=== PATIENT | female | born 1980 | race Hispanic/Latino ===

== ENCOUNTER → 2016-07-15 | Outpatient (CLI) | payer BC ==
[2016-07-15 17:49] LABS: HEMATOCRIT 41.4 % (37.0-47.0); HEMOGLOBIN 13.8 g/dL (12.0-16.0); MEAN CORPUSCULAR HEMOGLOBIN 27.2 PG (27-31); MEAN CORPUSCULAR HGB CONC 33.3 g/dL (33-37); RDW COEFFICIENT OF VARIATION 17.7 % (11.5-14.5); RED BLOOD COUNT 5.08 10^6/uL (4.20-5.40); WHITE BLOOD COUNT 6.09 10^3/uL (4.8-10.8)
== END ==
LOC: LAB 09:59
PROVIDERS: ATTEND Physician Assistant
DX: E03.9 Hypothyroidism, unspecified (principal); E55.9 Vitamin D deficiency, unspecified; D64.9 Anemia, unspecified
CPT/HCPCS: 82306; 84443; 85027

== ENCOUNTER 2016-07-17 17:21 | Emergency (ER) | payer BC ==
[2016-07-17] MEDS ORDERED: Sodium Chloride 0.9% 1,000 ML PRIMARY IV ONE (17:34)
[2016-07-17] MEDS ORDERED: ONDANSETRON 4 MG/2 ML VIAL IVP ONE (17:34)
[2016-07-17] MEDS ORDERED: NORMAL SALINE 10 ML SYRINGE FLUSH IVP PRN (17:34)
[2016-07-17] MEDS ORDERED: HYDROmorphone 2 MG/1 ML IVP ONE (17:36)
[2016-07-17] MEDS ORDERED: ONDANSETRON 4 MG/2 ML VIAL ONE (17:46)
[2016-07-17] MEDS ORDERED: HYDROmorphone 2 MG/1 ML ONE (17:46)
[2016-07-17 17:47] VITALS: RESP 20; TEMP 97.5
[2016-07-17] MEDS ORDERED: Sodium Chloride 0.9% 1,000 ML ONE (17:47)
[2016-07-17 17:48] LABS: BASOPHILS # (AUTO) 0.04 10*3/UL; BASOPHILS % (AUTO) 0.4 % (0-1); EOSINOPHILS % (AUTO) 3.6 % (0-8); HEMATOCRIT 39.7 % (37.0-47.0); HEMOGLOBIN 13.1 g/dL (12.0-16.0); IMM GRAN % (AUTO) 0.1 % (0-5); IMM GRAN# (AUTO) 0.01 10*3/UL; LYMPHOCYTES # (AUTO) 3.29 10*3/uL; LYMPHOCYTES % (AUTO) 34.7 % (10-50); MONOCYTES # (AUTO) 0.62 10*3/UL (0.3-0.8); MONOCYTES % (AUTO) 6.5 % (5-15); NEUTROPHILS # (AUTO) 5.18 10*3/UL; NEUTROPHILS % (AUTO) 54.7 % (50-80); RDW COEFFICIENT OF VARIATION 17.4 % (11.5-14.5); RED BLOOD COUNT 4.86 10^6/uL (4.20-5.40); WHITE BLOOD COUNT 9.48 10^3/uL (4.8-10.8)
[2016-07-17 17:58] LABS: AMYLASE 71 U/L (30-110); ASPARTATE AMINO TRANSFERASE 23 IU/L (8-39); BILIRUBIN,TOTAL 0.2 mg/dL (0.3-1.2); BLOOD UREA NITROGEN 18 mg/dL (7-22); CALCIUM 9.2 mg/dL (8.7-10.7); CHLORIDE 105 meq/L (98-112); CREATININE 0.8 mg/dL (0.50-1.20); EST GLOMERULAR FILTRATION > 60 (>60 ml/min/1.73m(2)); GLUCOSE 109 mg/dL (78-110); POTASSIUM 3.8 meq/L (3.8-5.2); SODIUM 139 meq/L (135-145); TOTAL PROTEIN 7.7 g/dL (6.1-8.0)
[2016-07-17 17:59] LABS: PLATELET MORPHOLOGY COMMENT NORMAL MORPHOLOGY (NORM)
[2016-07-17] MEDS ORDERED: KETOROLAC 30 MG/1 ML VIAL IVP ONE (19:02)
[2016-07-17] MEDS ORDERED: KETOROLAC 30 MG/1 ML VIAL ONE (19:10)
[2016-07-17 19:39] LABS: BILIRUBIN,URINE NEGATIVE (NEG); CLARITY,URINE CLEAR (CLEAR); GLUCOSE, URINE (UA) NEGATIVE (NEG); LEUKOCYTE ESTERASE ,URINE NEGATIVE (NEG); NITRATE,URINE NEGATIVE (NEG); OCCULT BLOOD,URINE NEGATIVE (NEG); PROTEIN,URINE NEGATIVE (NEG); URINE SAMPLE TYPE CLEAN CATCH URINE; UROBILINOGEN,URINE 0.2 EU/dL (0.2)
[2016-07-17] MEDS ORDERED: HYDROcodone-APAP 10 MG-325 MG TABLET PO SCH (20:15)
[2016-07-17] MEDS ORDERED: HYDROcodone-APAP 10 MG-325 MG TABLET PO ONE (20:20)
--- NOTE | 2016-07-18 04:16 | PDOC ---
Abdomen/Flank HPI - General Chief Complaint: Genitourinary Complaint Stated Complaint: flank pain Date Seen by Provider: 07/17/16 Time Seen by Provider: 17:20 Source: POSITIVE: Patient Exam Limitations: POSITIVE: No limitations Nurse's Notes Reviewed & Considered: Yes - History of Present Illness Initial Comments: The patient is a 36-year-old female who complains of bilateral flank and low back pain, left greater than right. She just finished her menses. Past surgical history includes a tubal ligation, cholecystectomy and a gastric sleeve. No fevers or chills. No diarrhea, melena, hematochezia, hematemesis, dysuria or hematuria. Body Location Affected: REPORTS: Abdomen, Back Timing: REPORTS: Abrupt Duration: 1-3 hours Severity: Moderate Quality: REPORTS: "Pain" Abdominal Pain Onset Location: REPORTS: Flank Abdominal Pain Radiation: REPORTS: No radiation Context: REPORTS: None Modifying Factors: improves with: Nothing Associated Symptoms: REPORTS: Back pain, Other (Flank pain) Similar Symptoms Previously: No Recent Care Received: REPORTS: Denies Any Prior Injuries Related to Current Complaint?: No - Patient Home Medications Home Medications: Home Medications Multivitamins W-Minerals [Icaps Plus] 1 each PO QD tab 12/05/13 Vitamin B Complex 1 each PO QD tab 05/21/15 Ergocalciferol (Vitamin D2) [Vitamin D2] 1 cap PO WEEKLY #12 cap 04/13/16 Paroxetine HCl [Paxil Cr] 1 unit PO QD #30 tab 07/15/16 Thyroid,Pork [[place] Thyroid] 1 unit PO QD #90 tab 07/15/16 HYDROcodone/APAP 10/325 Tab [[place] 10/325 Tab] 1 tab PO Q4H PRN #25 tab - Patient Allergies Allergies/Adverse Reactions: Allergies Allergy/AdvReac Type Severity Reaction Status Date / Time amoxicillin Allergy Intermediate rash Verified 07/17/16 17:28 Past Medical History - heen HEENT History: Denies History Cardiovascular History: Denies History Respiratory History: Denies History Gastrointestinal History: Denies History Genitourinary History: Denies History Endocrine History: Hypothyroidism Musculoskeletal History: Denies History Neurological History: Denies History Blood Disorders: Denies History Psychiatric History: Denies History History of Sexually Transmitted Diseases: No Female Reproductive History: Denies History LMP: "5 days ago" Obstetrical History: Denies History Cancer History: Denies History In Past Year Been Physically Harmed or Verbally Threatened: No History of MDRO: No History of Other Communicable Diseases: No Tobacco Use: Never Smoker Alcohol Use: Rarely Substance Use Type: None Previous Surgical History: Yes Type / Date of Surgery: x 2. cholecystectomy. tubal Anesthesia Reactions: No Significant Family History: No pertinent family hx Past Medical History Reviewed: Reviewed - No Changes ROS - Limitations ROS Limitations: No Limitations Constitution: REPORTS: Denies Symptoms Cardiovascular: REPORTS: Denies Cardiac Symptoms Respiratory: REPORTS: Denies Resp Symptoms Neurological: REPORTS: Denies Neuro Symptoms Gastrointestinal: REPORTS: Abdominal Pain, Other (Flank pain) Endocrine: REPORTS: Denies Symptoms Musculoskeletal: REPORTS: Denies MS Symptoms Genitourinary: REPORTS: Flank Pain Eyes: REPORTS: Denies Symptoms ENT: REPORTS: Denies Symptoms Skin: REPORTS: Denies Skin Symptoms Lympathic: REPORTS: Denies Lympathic Symptoms Immunologic: POSITIVE: Denies Symptoms Psychiatric: POSITIVE: Denies Psych Symptoms Abdominal/Flank Pain PE - General Appearance General Appearance: POSITIVE: Alert, Cooperative, No Evidence of Trauma, Moderate Distress - HEENT HEENT: POSITIVE: Head Inspection Nml, Eyes Inspection Nml, Ears Inspection Nml, Nose Inspection Nml, Oral/Dental Inspect. Nml, Pharynx Inspect. Nml, PERRL, EOMI - Neck Neck: POSITIVE: Normal Inspection, No Apparent Injury - Respiratory Respiratory: POSITIVE: No Respiratory Distress, Breath Sounds Normal, Chest Non- Tender - Cardiovascular Cardiovascular: POSITIVE: Regular Rate and Rhythm, Heart Sounds Normal, Equal Pulses, Strong Pulses Peripheral Pulses: Radial (R): 2+, Radial (L): 2+ - Chest Chest: POSITIVE: Non Tender - Abdomen Abdomen: Soft: (All Quadrants), Normal Bowel Sounds: (All Quadrants), Denies Tenderness: (All Quadrants), No Splenomegaly: (All Quadrants), No Hepatomegaly: (All Quadrants), No Guarding: (All Quadrants), No Rebound: (All Quadrants), No Palpable Pulse: (All Quadrants), No Palpabale Mass: (All Quadrants), No Distention: (All Quadrants), No Rigidity: (All Quadrants) - Back Back: POSITIVE: CVA Tenderness (R), CVA Tenderness (L) - Skin Skin: POSITIVE: Intact, Normal For Race, Warm, Dry, No Rash - Extremities Extremity: Non-Tender: (All Extremities), Normal ROM: (All Extremities), Normal Inspection: (All Extremities) - Neurological Neurological: POSITIVE: Oriented X3, spring former machine Normal As Tested, Motor Normal, Sensation Normal, 5, 6 - Psychological Psychiatric: POSITIVE: Affect Appropriate, Mood Appropriate Images - Complete Complete: 1 - Area of described pain 2 - Area of described pain. Abdomen Progress - Results Reviewed by me Xrays/CTs/US Reviewed by me: Yes Discussed with Radiologist: Yes Radiology Findings: CT scan abdomen and pelvis with IV contrast read as normal by radiologist with no evidence of obstructive uropathy Lab Results Reviewed: Yes Lab Results:: Laboratory Results 07/17/16 07/17/16 Range/Units 17:30 19:38 WBC 9.48 (4.8-10.8) 10^3/uL RBC 4.86 (4.20-5.40) 10^6/uL Hgb 13.1 (12.0-16.0) g/dL Hct 39.7 (37.0-47.0) % MCV 81.7 (81-99) FL MCH 27.0 (27-31) PG MCHC 33.0 (33-37) g/dL RDW Std Deviation 51.4 H (39-50) fL RDW Coeff of [place] 17.4 H (11.5-14.5) % Plt Count 370 H (140-350) 10*3/uL MPV 11.0 (7.4-12.2) FL Immature Gran % (Auto) 0.1 (0-5) % Neut % (Auto) 54.7 (50-80) % Lymph % (Auto) 34.7 (10-50) % [place] % (Auto) 6.5 (5-15) % Eos % (Auto) 3.6 (0-8) % Baso % (Auto) 0.4 (0-1) % Immature Gran # (Auto) 0.01 10*3/UL Neut # (Auto) 5.18 10*3/UL Lymph # (Auto) 3.29 10*3/uL [place] # (Auto) 0.62 (0.3-0.8) 10*3/UL Eos # (Auto) 0.34 10*3/UL Baso # (Auto) 0.04 10*3/UL WBC Morphology Comment Normal morphology (NORM) Plt Morphology Comment Normal morphology (NORM) RBC Morph Comment Normal morphology (NORM) Sodium 139 (135-145) meq/L Potassium 3.8 (3.8-5.2) meq/L Chloride 105 (98-112) meq/L Carbon Dioxide 20 L (23-33) meq/L Anion Gap 14 (5-20) BUN 18 (7-22) mg/dL Creatinine 0.8 (0.50-1.20) mg/dL Estimated GFR > 60 (>60 ml/min/1.73m(2)) BUN/Creatinine Ratio 22.50 H (6-20) Glucose 109 (78-110) mg/dL Calculated Osmolality 290.0 (267-292) mOsm/kg Calcium 9.2 (8.7-10.7) mg/dL Total Bilirubin 0.2 L (0.3-1.2) mg/dL AST 23 (8-39) IU/L ALT 28 (9-52) IU/L Alkaline Phosphatase 85 (38-126) IU/L Total Protein 7.7 (6.1-8.0) g/dL Albumin 4.4 (3.5-4.8) g/dL Globulin 3.3 (2.50-4.10) g/dL Albumin/Globulin Ratio 1.30 (1.3-2.0) mg/g Amylase 71 (30-110) U/L Lipase 197 (23-300) IU/L Ur Collection Type Clean catch urine Urine Color Yellow Urine Clarity Clear (CLEAR) Urine pH 7.0 (5.0-8.5) Ur Specific [place] 1.015 (1.005-1.030) Urine Protein Negative (NEG) mg/dl Urine Glucose (UA) Negative (NEG) mg/dL Urine Ketones 15 (NEG) Urine Occult Blood Negative (NEG) Urine Nitrate Negative (NEG) Urine Bilirubin Negative (NEG) Urine Urobilinogen 0.2 (0.2) EU/dL Ur Leukocyte Esterase Negative (NEG) Ur Culture Indicated? Culture not set - Patient's Progress Pain Medication Addressed: POSITIVE: Yes (Dilaudid and ketorolac IV given in the emergency room) School/Work Release Addressed: POSITIVE: Not Applicable Re-examine Time: 19:55 Re-Examine Comment: Discomfort lasts on discharge Status: POSITIVE: Improved, Re-Examined - Consult Counseled: POSITIVE: Patient, RE: Lab Results, RE: Radiology Results, RE: DX, RE : Need for F/U Patient Care Time - Estimated PCT Patient Care Time (In Minutes): 45 Vital Signs - VS Reviewed Vital Signs Reviewed: Yes Discharge Clinical Impression: Flank pain Discharge Disposition: Discharged to Home Condition: Stable Prescriptions / Orders: HYDROcodone/APAP 10/325 Tab [[place] 10/325 Tab] 1 tab PO Q4H PRN #25 tab PRN Reason: Pain Patient Instructions Given at Discharge: Flank Pain (ED) Additional Instructions: I'm not completely sure what might be causing your abdominal and flank pain. The blood and urine tests done in the emergency room are normal. CT scan of your abdomen and pelvis with intravenous contrast is also normal. Clear liquid diet for 24 hours. Hydrocodone/APAP, one every 4 hours as necessary for pain. Follow-up with your primary care provider. Return here anytime if condition worsens. Follow Up With: SHRAVAN VASQUEZ [Primary Care Provider] - (Instructions and medications as above. Follow-up with your primary care provider. Return here anytime if condition worsens in any way.)
== END 2016-07-17 20:23 | disposition home or self-care (01) ==
LOC: ER 17:21
DX: R10.31 Right lower quadrant pain (principal); M54.5 Low back pain; R10.32 Left lower quadrant pain
CPT/HCPCS: 74177; 80053; 81003; 82150; 83690; 85025; 96361; 96374; 96375; 99282; 99283; J1885; J1170; J2405; J7030

== ENCOUNTER → 2016-11-11 | Outpatient (CLI) | payer BC ==
[2016-11-11 13:09] LABS: HEMATOCRIT 41.4 % (37.0-47.0); HEMOGLOBIN 13.1 g/dL (12.0-16.0)
== END ==
LOC: LAB 10:16
PROVIDERS: ATTEND Nurse Practitioner Family
DX: E03.9 Hypothyroidism, unspecified (principal); R53.83 Other fatigue; Z98.84 Bariatric surgery status
CPT/HCPCS: 82728; 83540; 83550; 84443; 85014; 85018